=== PATIENT | female | born 1940 | race Caucasian/White ===

== ENCOUNTER 2022-07-25 06:51 | Day surgery (SDC) | payer MEDICARE, BC, SELFPAY ==
[2022-07-25 07:36] VITALS: BP 142/57; PULSE 66; RESP 16; TEMP 36.4; O2SAT 97
[2022-07-25] MEDS: Tropicam./Phenyleph. (1/2.5%) 5 ML BTL ×3 (07:36→07:53)
--- NOTE | 2022-07-25 07:40 | ANES.PREOP_ITS ---
General Info Date of Service Date Performed: 07/25/22 Height: 5 ft 6 in Weight: 75.8 kg Body Mass Index (BMI): 26.9 Surgical Procedure: Operation Date: 07/25/22 08:40 Proposed Procedure Side Surgeon p Cataract Extraction with IOL Implant Left Torres Pereira MD Meds Allergies and Home Medications Allergies Allergy/AdvReac Type Severity Reaction Status Date / Time No Known Allergies Allergy Unverified 07/25/22 07:33 Home Medication Medication Instructions Recorded Lactobacillus acidophilus and 1 cap PO DAILY 07/22/22 rhamnosus 15 billion cell capsule (Probiotic) aspirin 81 mg tablet,delayed 81 mg PO DAILY 07/22/22 release cephalexin 500 mg capsule 2,000 mg PO DIRECTED 07/22/22 cholecalciferol (vitamin D3) 50 2,000 unit PO DAILY 07/22/22 mcg (2,000 unit) tablet (Vitamin D3) lisinopril 10 mg tablet 10 mg PO DAILY 07/22/22 magnesium citrate 125 mg capsule 125 mg PO DAILY 07/22/22 omega-3 fatty acids-vitamin E 1 cap PO DAILY 07/22/22 1,000 mg capsule omeprazole 20 mg capsule,delayed 20 mg PO DAILY 07/22/22 release vitamin B complex 1 cap PO DAILY 07/22/22 PFS Active Problems Active Problems: Problem Status Onset Code Nuclear sclerotic cataract of left eye H25.12 Posterior subcapsular age-related cataract of left eye H25.042 Medical History Medical History Anxiety Barretts esophagus Bilateral cataracts Diastolic dysfunction GERD (gastroesophageal reflux disease) HLD (hyperlipidemia) HTN (hypertension) Kidney cysts Left tennis elbow Liver cyst Lumbar facet arthropathy Lumbar spondylolysis Polyarthritis Primary osteoarthritis Right carpal tunnel syndrome Trochanteric bursitis Varicose veins of bilateral lower extremities with pain Surgical History Surgical History History of lumbar laminectomy Hx of appendectomy Hx of colonoscopy Hx of esophagogastroduodenoscopy Hx of total hip arthroplasty right Hx of tubal ligation Status post phlebectomy Tobacco Smoking/Tobacco Use Status: Never Alcohol Alcohol Intake: never Substance Use Substance use: Never Substance use type: does not use Vital Signs and Lab Results Vital Signs Most Recent Vital Signs in EMR: Most Recent Vital Signs Temp Pulse Resp BP Pulse Ox 36.4 C L 66 16 142/57 H 97 07/25/22 07:36 07/25/22 07:36 07/25/22 07:36 07/25/22 07:36 07/25/22 07:36 Lab Results Blood Type / Crossmatch: No Data to Display Complete Blood Count: No Data to Display Complete Metabolic Panel: No Data to Display Liver Function Panel: No Data to Display Coagulation Panel: 2 No Data to Display Cardiac Panel: No Data to Display Arterial Blood Gas: No Data to Display Venous Blood Gas: No Data to Display Pancreas Panel: No Data to Display Thyroid Panel: No Data to Display Infectious Disease: No Data to Display Blood Cultures: No Data to Display Toxicology Panel: No Data to Display Anesthesia Assessment and Plan Anesthesia History Personal History: No History of Anesthesia Complications Family History: No Family History of Anesthesia Complications Exercise Tolerance Exercise Tolerance: Metabolic Equivalents>4 Pertinent Negatives Pertinent Negatives: No Symptoms of GERD ( MEd controlled) and No Major Cardiovascular Symptoms or Complaints Cardiac & Pulmonary Exam Cardiac Exam: Normal S1/S2 Heart Sounds Pulmonary Exam: Clear Bilateral Breath Sounds Implantable Cardiac Device Does patient have a Pacemaker or an ICD?: No Airway Exam Known Difficult Airway: No Mallampati Class: 2 Mouth Opening: Normal (> 3cm) Thyromental Distance: Greater than 3 cm Neck Range of Motion: Full ROM Neck Circumference: Normal Teeth Condition: Removable Dentures/Plates Upper and Removable Dentures/Plates Lower ASA Classification ASA Score: ASA 2 Emergency Case?: No NPO Status NPO Status: NPO Clears >2 hours, Solids >8 hours Anesthesia Plan Resuscitation Status: Full Code Anesthesia Technique: MAC Anesthesia Airway Planned: Natural Airway Monitors Used: Standard Monitors Preoperative Comments:: Dry nervous. Wants mko
[2022-07-25 07:44] VITALS: BMI 26.9
[2022-07-25] MEDS: Balanced Salt Soln.-PLUS 500 ML BAG (08:21)
[2022-07-25] MEDS: Tetracaine 0.5% 4 ML BTL (08:21)
[2022-07-25] MEDS: Lidocaine 2% Jelly 6 ML SYR (08:22)
[2022-07-25] MEDS: Povidone-Iodine Ophth 30 ML BTL (08:23)
[2022-07-25] MEDS: Duovisc Viscoelastic System EACH 1 EACH (08:24)
[2022-07-25 08:40] VITALS: BP 116/65; PULSE 54; RESP 18; TEMP 36.3; O2SAT 98
--- NOTE | 2022-07-25 08:42 | W.PM.DSUDISC ---
Date of service: 07/25/22 Time of Service: 08:42 Discharge Plan Disposition Patient Disposition: HOME Condition: Good Discharge Details Attending Provider: Torres Pereira Primary Care Provider: Cedric Wick Home Meds and New Rx's Prescriptions: No Action aspirin [Aspir-81] 81 mg Tablet,Delayed Release (Dr/Ec) 81 mg PO DAILY lisinopril 10 mg Tablet 10 mg PO DAILY omeprazole 20 mg Capsule,Delayed Release(Dr/Ec) 20 mg PO DAILY vitamin B complex Capsule 1 cap PO DAILY Fish Oil 1,000 mg Capsule 1 cap PO DAILY cholecalciferol (vitamin D3) [Vitamin D3] 50 mcg (2,000 unit) Tablet 2,000 unit PO DAILY Probiotic 15 billion cell Capsule 1 cap PO DAILY magnesium citrate 125 mg Capsule 125 mg PO DAILY cephalexin 500 mg Capsule 2,000 mg PO DIRECTED Discharge Instructions Stand Alone Forms: Post-op Topical Cataract, Fidel Ganey (DSU) Discharge Orders Discharge Orders: Discharge Order (Routine); Ordered 07/25/22 Ordered By: Torres Pereira DS: Diagnosis Discharge Diagnosis (1) Nuclear sclerotic cataract of left eye: Status: Resolved (2) Posterior subcapsular age-related cataract of left eye: Status: Resolved
--- NOTE | 2022-07-25 08:43 | W.PM.OP ---
Date of service: 07/25/22 Time of Service: 08:43 Operative Note Operative Note DATE OF PROCEDURE: 07/25/22 PRE-OP DIAGNOSIS: Nuclear/posterior subcapsular cataract, left eye Poorly dilating pupil, left eye POST-OP DIAGNOSIS: same PROCEDURE: Cataract extraction by phacoemulsification with intraocular lens implantation, left eye, with pupillary expansion device SURGEON: Torres Pereira ANESTHESIA TYPE: Local By Surgeon and MAC Refer to Anesthesia Record ESTIMATED BLOOD LOSS: 0 PATHOLOGY: none sent COMPLICATIONS: None Patient was transported to: same day Patient's condition: stable Implants: Doron and Doron / [employer] Tecnis [id number] Indications: Progressive decreased vision, left eye Poorly dilating pupil, left eye. Procedure Description: CATARACT SURGERY OPERATIVE REPORT PREOPERATIVE DIAGNOSIS: 1. Nuclear/posterior subcapsular cataract, left eye 2. Poorly dilating pupil, left eye POSTOPERATIVE DIAGNOSIS: Same OPERATION: 1. Cataract extraction using phacoemulsification with posterior chamber intraocular lens implant, left eye. 2. Pupillary dilation and iris stabilization using Malyugin Ring IOL; IOL Community Health Worker/Model: Doron & Doron / CELESTE Tecnis [id number] IOL Power: + 23.5 diopters IOL Serial Number: [id number] Optic Diameter: 6.0 mm Haptic/Overall Diameter: 13.00 mm PHACO INFO: Jorge [employer]urion Vision System with OZil and Active Fluidics Cumulative Dispersed Energy (CDE): 7.94 seconds SURGEON: Torres Pereira MD, EARL ANESTHESIA: Monitored Anesthesia Care (MAC), with local sub-tenon's anesthetic infiltration COMPLICATIONS: None SPECIMENS: None INDICATIONS FOR PROCEDURE: The patient is an 82-year-old lady with history of diminished visual acuity in her left eye secondary to development of nuclear/posterior subcapsular cataract. She is significantly symptomatic that she desires cataract surgery and attempt to improve and maximize her vision. The option of cataract surgery was offered to the patient and she wished to proceed. PROCEDURE: The correct surgical eye was identified and marked as the left eye and the pupil was dilated in the preoperative area using mydriatics, cycloplegics, and NSAIDS (except in aspirin allergic patients). The dilated pupil size was [] mm. Oral sedation was administered in the form of an Imprimis MKO Melt (midazolam 3mg/ketamine 25mg/ondansetron 2mg). The patient was brought to the operating room where cardiopulmonary monitoring was instituted and surgical time-out was performed, confirming the correct operative eye and IOL power. Topical anesthesia was administered and ophthalmic povidone-iodine 5% was instilled into the conjunctival fornices. Lidocaine gel was applied to the cornea and the adam-ocular area was prepped with Betadine 10% solution and draped in the usual sterile fashion for intraocular surgery, including an aperture drape. A Tegaderm transparent film dressing was cut in half and used to cover the lashes and lid margins. Care was taken to sequester the lashes and lid margins under the Tegaderm dressing. A lid speculum was placed between the lids of the operative eye and the Juan-Ivette operating microscope was maneuvered into position. Gala scissors were then used to make a conjunctival buttonhole approximately 6mm posterior to the limbus in the inferonasal quadrant. Blunt dissection was carried out to expose bare sclera, and a blunt-tipped sub-tenon?s anesthesia cannula was introduced and passed posteriorly along the globe where non-preserved plain lidocaine was injected into posterior sub-Tenon?s space. A sideport knife was used to make a paracentesis port superiorly/superiortemporally. Intraocular phenylephrine/lidocaine was injected into the anterior chamber. The anterior chamber was then filled with viscoelastic. A keratome knife was used to create a half-thickness groove at the limbus and then to construct a three-plane near-clear corneal tunnel extending 2.0mm into clear cornea at the temporal position. A 6.25 mm Malyugin Ring was then inserted into the pupillary space and engaged with the Kuglen hook. A flap was raised on the anterior capsule and capsulorhexis forceps were used to complete a continuous curvilinear capsulorhexis of 5.0 mm. Balanced salt solution was then used to perform cortical cleaving hydrodissection and nuclear hydrodelineation until the lens could be freely rotated within the capsular bag. The lens nucleus was then disassembled and removed within the capsular bag and iris plane using phacoemulsification. Residual cortical material was removed using the 45-degree angled silicone I/A tip with 0.3mm port. The posterior capsule was carefully polished to remove as much residual lens epithelial cells as safely possible. The capsular bag was then inflated and the anterior chamber deepened with viscoelastic. The lens implant described above was inserted into the capsular bag using the CELESTE [place] Injector. A Kuglen hook was used to dial the IOL into position. The Malyugin Ring was removed in the reverse order of its insertion. Residual viscoelastic was then removed first from posterior to the IOL, then from the anterior chamber using the I/A handpiece. The lens implant was noted to center nicely within the capsular bag. The incisions were stromally hydrated, and the anterior chamber was reformed using BSS. Then 0.5cc of moxifloxacin 1.0mg/ml were injected into the capsular bag and anterior chamber. The incisions were checked with a Weck spear and found to be secure. Several drops of ophthalmic povidone-iodine 5% were then applied to the eye followed by two drops of Imprimis combination prednisolone/moxifloxacin/nepafenac solution. The drapes were removed and a clear plastic protective eye shield was placed over the eye. The patient was then returned to Same Day Surgery in stable condition.
[2022-07-25 09:06] VITALS: BP 122/69; PULSE 64; RESP 16; TEMP 36.3; O2SAT 96
--- NOTE | 2022-07-25 09:08 | W.ANESPOSTOP ---
Postoperative Evaluation Date, Time and Location Date Performed: 07/25/22 Time Performed: 08:50 Patient Location: Day Surgery Unit Vital Signs Most Recent Imported Vital Signs: Most Recent Vital Signs Temp Pulse Resp BP Pulse Ox 36.3 C L 54 L 18 116/65 98 07/25/22 08:40 07/25/22 08:40 07/25/22 08:40 07/25/22 08:40 07/25/22 08:40 Pain Score Most Recent Pain Score: Most Recent Pain Score Pain Level 0 07/25/22 08:40 Assessment Mental Status: Awake (Alert & Oriented to Patient Baseline) Airway and Respiratory Function: Patent airway with normal (patient baseline) respiratory exam Cardiovascular Function: Hemodynamically Stable Hydration Status: Adequately Hydrated Nausea & Vomiting: No Nausea or Vomiting Pain: Pt. Denies Any Pain Peripheral Nerve Block: Patient did not receive a nerve block
== END 2022-07-25 09:19 | disposition home or self-care (01) ==
LOC: SUR 06:51
PROVIDERS: PCP Family Medicine; Visit Provider Ophthalmology
PROC: (CPT 66982; principal; 2022-07-25 08:30)
DX: H25.042 Posterior subcapsular polar age-related cataract, left eye (principal); H57.03 Miosis; I11.0 Hypertensive heart disease with heart failure; I50.30 Unspecified diastolic (congestive) heart failure
CPT/HCPCS: 66982; V2632

== ENCOUNTER 2022-08-08 10:18 | Day surgery (SDC) | payer MEDICARE, BC, SELFPAY ==
[2022-08-08] MEDS: Tropicam./Phenyleph. (1/2.5%) 5 ML BTL OD ×3 (10:59→11:13)
[2022-08-08 11:00] VITALS: BP 166/72; PULSE 67; RESP 16; TEMP 36.6; O2SAT 97
--- NOTE | 2022-08-08 11:10 | ANES.PREOP_ITS ---
General Info Date of Service Date Performed: 08/08/22 Height: 5 ft 6 in Weight: 76.6 kg Body Mass Index (BMI): 27.2 Surgical Procedure: Operation Date: 08/08/22 13:40 Proposed Procedure Side Surgeon p Cataract Extraction with IOL Implant Right Torres Pereira MD Meds Allergies and Home Medications Allergies Allergy/AdvReac Type Severity Reaction Status Date / Time No Known Allergies Allergy Unverified 08/08/22 10:52 Home Medication Medication Instructions Recorded Lactobacillus acidophilus and 1 cap PO DAILY 07/22/22 rhamnosus 15 billion cell capsule (Probiotic) aspirin 81 mg tablet,delayed 81 mg PO DAILY 07/22/22 release cephalexin 500 mg capsule 2,000 mg PO DIRECTED 07/22/22 cholecalciferol (vitamin D3) 50 2,000 unit PO DAILY 07/22/22 mcg (2,000 unit) tablet (Vitamin D3) lisinopril 10 mg tablet 10 mg PO DAILY 07/22/22 magnesium citrate 125 mg capsule 125 mg PO DAILY 07/22/22 omega-3 fatty acids-vitamin E 1 cap PO DAILY 07/22/22 1,000 mg capsule omeprazole 20 mg capsule,delayed 20 mg PO DAILY 07/22/22 release vitamin B complex 1 cap PO DAILY 07/22/22 Current Visit Medications: Current Medications Generic Name Dose Route Start Last Admin Trade Name Freq PRN Reason Stop Dose Admin Acetaminophen 1,000 mg 08/08/22 06:00 Acetaminophen 500 Mg Tab PO Q4H PRN PRN Miscellaneous Medication 0 ml 08/08/22 06:00 Prednisolone 1%, Moxifloxacin 0.5%, Nepafenac 0.1% 5ml Btl OD DIRECTED [facility] Miscellaneous Medication 0 ml 08/08/22 06:00 08/08/22 11:09 Tropicam./Phenyleph. (1/2.5%) 5 Ml Btl OD 1 drp DIRECTED MARY LOU Administration Tetracaine HCl 0 ml 08/08/22 06:00 Tetracaine 0.5% 4 Ml Btl OD DIRECTED MARY LOU PFSH Active Problems Active Problems: Problem Status Onset Code Nuclear sclerotic cataract of left eye H25.12 Posterior subcapsular age-related cataract of left eye H25.042 Nuclear sclerotic cataract of right eye H25.11 Posterior subcapsular age-related cataract, right eye H25.041 Medical History Medical History Anxiety Barretts esophagus Bilateral cataracts Diastolic dysfunction GERD (gastroesophageal reflux disease) HLD (hyperlipidemia) HTN (hypertension) Kidney cysts Left tennis elbow Liver cyst Lumbar facet arthropathy Lumbar spondylolysis Polyarthritis Primary osteoarthritis Right carpal tunnel syndrome Trochanteric bursitis Varicose veins of bilateral lower extremities with pain Surgical History Surgical History History of cataract surgery History of lumbar laminectomy Hx of appendectomy Hx of colonoscopy Hx of esophagogastroduodenoscopy Hx of total hip arthroplasty right Hx of tubal ligation Status post phlebectomy Tobacco Smoking/Tobacco Use Status: Never Alcohol Alcohol Intake: never Substance Use Substance use: Never Substance use type: does not use Vital Signs and Lab Results Vital Signs Most Recent Vital Signs in EMR: Most Recent Vital Signs Temp Pulse Resp BP Pulse Ox 36.6 C 67 16 166/72 H 97 08/08/22 11:00 08/08/22 11:00 08/08/22 11:00 08/08/22 11:00 08/08/22 11:00 Lab Results Blood Type / Crossmatch: No Data to Display Complete Blood Count: No Data to Display Complete Metabolic Panel: No Data to Display Liver Function Panel: No Data to Display Coagulation Panel: No Data to Display Cardiac Panel: No Data to Display Arterial Blood Gas: No Data to Display Venous Blood Gas: No Data to Display Pancreas Panel: No Data to Display Thyroid Panel: No Data to Display Infectious Disease: No Data to Display Blood Cultures: No Data to Display Toxicology Panel: No Data to Display Anesthesia Assessment and Plan Anesthesia History Personal History: No History of Anesthesia Complications Family History: No Family History of Anesthesia Complications Exercise Tolerance Exercise Tolerance: Metabolic Equivalents>4 Pertinent Negatives Pertinent Negatives: No Symptoms of GERD (medication controlled), No Major Pulmonary Symptoms or Complaints and No History of CVA/TIA Cardiac & Pulmonary Exam Cardiac Exam: Normal S1/S2 Heart Sounds Pulmonary Exam: Clear Bilateral Breath Sounds Implantable Cardiac Device Does patient have a Pacemaker or an ICD?: No Airway Exam Known Difficult Airway: No Mallampati Class: 2 Mouth Opening: Normal (> 3cm) Thyromental Distance: Greater than 3 cm Neck Range of Motion: Full ROM Neck Circumference: Normal Teeth Condition: Removable Dentures/Plates Upper and Removable Dentures/Plates Lower ASA Classification ASA Score: ASA 2 Emergency Case?: No NPO Status NPO Status: NPO Clears >2 hours, Solids >8 hours Anesthesia Plan Resuscitation Status: Full Code Anesthesia Technique: MAC Anesthesia Airway Planned: Natural Airway Monitors Used: Standard Monitors Preoperative Comments:: MKO for first cataract (07/25/2022)
[2022-08-08 11:43] VITALS: BMI 27.2
[2022-08-08] MEDS: Tetracaine 0.5% 4 ML BTL OD (11:46)
[2022-08-08] MEDS: Balanced Salt Soln.-PLUS 500 ML BAG (11:46)
[2022-08-08] MEDS: Duovisc Viscoelastic System EACH 1 EACH (11:46)
[2022-08-08] MEDS: Lidocaine 2% Jelly 6 ML SYR (11:47)
[2022-08-08] MEDS: Povidone-Iodine Ophth 30 ML BTL (11:48)
[2022-08-08 12:10] VITALS: BP 168/64; PULSE 60; RESP 16; TEMP 36; O2SAT 97
--- NOTE | 2022-08-08 12:14 | W.PM.DSUDISC ---
Date of service: 08/08/22 Time of Service: 12:14 Discharge Plan Disposition Patient Disposition: HOME Condition: Good Discharge Details Attending Provider: Torres Pereira Primary Care Provider: Devora Yee [place] Meds and New Rx's Prescriptions: No Action aspirin [Aspir-81] 81 mg Tablet,Delayed Release (Dr/Ec) 81 mg PO DAILY lisinopril 10 mg Tablet 10 mg PO DAILY omeprazole 20 mg Capsule,Delayed Release(Dr/Ec) 20 mg PO DAILY vitamin B complex Capsule 1 cap PO DAILY Fish Oil 1,000 mg Capsule 1 cap PO DAILY cholecalciferol (vitamin D3) [Vitamin D3] 50 mcg (2,000 unit) Tablet 2,000 unit PO DAILY Probiotic 15 billion cell Capsule 1 cap PO DAILY magnesium citrate 125 mg Capsule 125 mg PO DAILY cephalexin 500 mg Capsule 2,000 mg PO DIRECTED Discharge Instructions Stand Alone Forms: Post-op Topical Cataract, Fidel Guzman (DSU) Discharge Orders Discharge Orders: Discharge Order (Routine); Ordered 08/08/22 Ordered By: Torres Pereira DS: Diagnosis Discharge Diagnosis (1) Nuclear sclerotic cataract of right eye: Status: Resolved (2) Posterior subcapsular age-related cataract, right eye: Status: Resolved
--- NOTE | 2022-08-08 12:15 | W.PM.OP ---
Date of service: 08/08/22 Time of Service: 12:15 Operative Note Operative Note DATE OF PROCEDURE: 08/08/22 PRE-OP DIAGNOSIS: Nuclear/cortical cataract, right eye Poorly dilating pupil, right eye POST-OP DIAGNOSIS: same PROCEDURE: 1. Cataract extraction by phacoemulsification with intraocular lens implantation, right eye, with pupillary expansion device SURGEON: Torres Pereira ANESTHESIA TYPE: Local By Surgeon and MAC Refer to Anesthesia Record PATHOLOGY: none sent COMPLICATIONS: None Patient was transported to: same day Patient's condition: stable Implants: Doron and Doron / [employer] Tecnis [id number] Indications: Progressive decreased vision due to cataract, right eye, with poorly dilating pupil Procedure Description: CATARACT SURGERY OPERATIVE REPORT PREOPERATIVE DIAGNOSIS: 1. Nuclear/cortical cataract, right eye 2. Poorly dilating pupil, right eye POSTOPERATIVE DIAGNOSIS: Same OPERATION: 1. Cataract extraction using phacoemulsification with posterior chamber intraocular lens implant, right eye. 2. Pupillary dilation and iris stabilization using Malyugin Ring IOL: IOL Manager Of Broadcast Content/Model: Doron & Doron / CELESTE Tecnis [id number] IOL Power: + 24.0 diopters IOL Serial Number: [id number] Optic Diameter: 6.0mm Haptic/Overall Diameter: 13.0mm PHACO INFO: Jorge [employer]ion Vision System with OZil and Active Fluidics Cumulative Dispersed Energy (CDE): 8.76 seconds SURGEON: Torres Pereira MD, EARL ANESTHESIA: Monitored Anesthesia Care (MAC), with local sub-tenon's anesthetic infiltration COMPLICATIONS: None SPECIMENS: None INDICATIONS FOR PROCEDURE: The patient is an 82-year-old lady with history of diminished visual acuity in both eyes secondary to the development of bilateral nuclear/cortical cataract. She has already undergone cataract surgery in the left eye and is doing well postoperatively. She now presents for cataract surgery in the right eye. PROCEDURE: The correct surgical eye was identified and marked as the right eye and the pupil was dilated in the preoperative area using mydriatics and cycloplegics. The dilated pupil size was 4.0 mm. She elected to proceed without oral sedation. The patient was brought to the operating room where cardiopulmonary monitoring was instituted and surgical time-out was performed, confirming the correct operative eye and IOL power. Topical anesthesia was administered and ophthalmic povidone-iodine 5% was instilled into the conjunctival fornices. Lidocaine gel was applied to the cornea and the adam-ocular area was prepped with Betadine 10% solution and draped in the usual sterile fashion for intraocular surgery, including an aperture drape. A Tegaderm transparent film dressing was cut in half and used to cover the lashes and lid margins. Care was taken to sequester the lashes and lid margins under the Tegaderm dressing. A lid speculum was placed between the lids of the operative eye and the Jorge [employer] operating microscope was maneuvered into position. Gala scissors were then used to make a conjunctival buttonhole approximately 6mm posterior to the limbus in the inferonasal quadrant. Blunt dissection was carried out to expose bare sclera, and a blunt-tipped sub-tenon?s anesthesia cannula was introduced and passed posteriorly along the globe where non-preserved plain lidocaine was injected into posterior sub-Tenon?s space. A sideport knife was used to make a paracentesis port inferiortemporally. Intraocular phenylephrine/lidocaine was injected in the anterior chamber. The anterior chamber was filled with viscoelastic. A keratome knife was used to construct a 2-plane near-clear corneal tunnel extending 2.0mm into clear cornea superiortemporally. A 6.25 mm Malyugin Ring was then inserted into the pupillary space and engaged with the Kuglen hook. A flap was raised on the anterior capsule and capsulorhexis forceps were used to complete a continuous curvilinear capsulorhexis of 5.0. No mm. Balanced salt solution was then used to perform cortical cleaving hydrodissection and nuclear hydrodelineation until the lens could be freely rotated within the capsular bag. The lens nucleus was then disassembled and removed within the capsular bag and iris plane using phacoemulsification. Residual cortical material was removed using the 45-degree angled silicone I/A tip with 0.3mm port. The posterior capsule was carefully polished to remove as much residual lens epithelial cells as safely possible. The capsular bag was then inflated and the anterior chamber deepened with viscoelastic. The lens implant described above was inserted into the capsular bag using the CELESTE [place] Injector. A Kuglen hook was used to dial the IOL into position. The Malyugin Ring was removed in the reverse order of its insertion. Residual viscoelastic was then removed first from posterior to the IOL, then from the anterior chamber using the I/A handpiece. The lens implant was noted to center nicely within the capsular bag. The incisions were stromally hydrated, and the anterior chamber was reformed using BSS. Then 0.5cc of moxifloxacin 1.0mg/ml were injected into the capsular bag and anterior chamber. The incisions were checked with a Weck spear and found to be secure. Several drops of ophthalmic povidone-iodine 5% were then applied to the eye followed by two drops of Imprimis combination prednisolone/moxifloxacin/nepafenac solution. The drapes were removed and a clear plastic protective eye shield was placed over the eye. The patient was then returned to Same Day Surgery in stable condition.
--- NOTE | 2022-08-08 14:10 | W.ANESPOSTOP ---
Postoperative Evaluation Date, Time and Location Date Performed: 08/08/22 Time Performed: 14:11 Patient Location: Day Surgery Unit Vital Signs Most Recent Imported Vital Signs: Most Recent Vital Signs Temp Pulse Resp BP Pulse Ox 36 C L 60 16 168/64 H 97 08/08/22 12:10 08/08/22 12:10 08/08/22 12:10 08/08/22 12:10 08/08/22 12:10 Pain Score Most Recent Pain Score: Most Recent Pain Score Pain Level 0 08/08/22 12:10 Assessment Mental Status: Awake (Alert & Oriented to Patient Baseline) Airway and Respiratory Function: Patent airway with normal (patient baseline) respiratory exam Cardiovascular Function: Hemodynamically Stable Hydration Status: Adequately Hydrated Nausea & Vomiting: No Nausea or Vomiting Pain: Pt. Denies Any Pain Peripheral Nerve Block: Other (Local by Dr. Pereira) Postoperative Comments:: Patient seen earlier today and was appropriate for discharge.
== END 2022-08-08 12:30 | disposition home or self-care (01) ==
PROVIDERS: PCP Family Medicine; Visit Provider Ophthalmology
PROC: (CPT 66982; principal; 2022-08-08 13:30)
DX: H25.041 Posterior subcapsular polar age-related cataract, right eye (principal); H57.03 Miosis
CPT/HCPCS: 66982; V2632